=== PATIENT | male | born 1940 | race Caucasian/White ===

== ENCOUNTER 2017-04-30 14:29 | Emergency (ER) | payer MEDICARE ==
[2017-04-30 15:00] VITALS: BP 121/63
--- NOTE | 2017-04-30 15:02 | UC ---
Knee Pain HPI - HPI Summary HPI Summary: Pt presents to the [facility] with complaint of left knee pain. Pt states golfed on Wed without any difficulty. However, pt states had to squat and slid into the cart at an unusual angle second to a cover on the cart. Pt states since this time has pain and stiffness posterior aspect of distal femur. Pt states pain is worse with leg straightening and with standing. States feels "tight." Pt states has taken APAP with improvement. Pt states applied heat with improvement. No fevers, chills. no erythema. No edema. Pt states can't cross legs to put on shoes second to pain. Pt denies hip or back pain. Pt states was wearing a "stretchy knee cover" earlier today which helped, but he removed second to it was too hot. Pt states leg has improved, feels less stiff , but wanted to be checked. Pt is on Coumadin for a fib. Pt's medications reviewed at this visit. - History of Current Complaint Chief Complaint: UCLowerExtremity Stated Complaint: LEFT KNEE INJURY Time Seen by Provider: 04/30/17 14:34 Hx Obtained From: Patient Onset/Duration: Gradual Onset Severity Initially: Moderate Severity Currently: Mild Pain Intensity: 3 Pain Scale Used: 0-10 Numeric Character: Stiffness Aggravating Factor(s): Movement, Weight Bearing, Nothing - straightening Alleviating Factor(s): Rest, Heat, OTC Meds Associated Signs And Symptoms: Negative: Swelling, Redness, Weakness Able to Bear Weight: Yes - Allergies/Home Medications Allergies/Adverse Reactions: Allergies Allergy/AdvReac Type Severity Reaction Status Date / Time Aspirin AdvReac Bleeding Verified 04/30/17 14:45 Home Medications: Home Medications Allopurinol TAB* [Zyloprim 100 MG TAB*] 100 mg PO DAILY 04/30/17 [History Confirmed 04/30/17] PMH/Surg Hx/FS Hx/Imm Hx Previously Healthy: Yes - Surgical History Surgical History: Yes Surgery Procedure, Year, and Place: cholecystectomy. right nephrectomy in 2009. left inguinal hernia. b/L carpal tunnels. Bilat cataracts. 2011 pt states he had percutaneous procedure to remove something where he had the rt kidney removed in 2011. - Family History Known Family History: Positive: Unknown, Hypertension - Social History Occupation: Retired Alcohol Use: Weekly Alcohol Amount: 5-6 PER WEEK Substance Use Type: None Smoking Status (MU): Former Smoker Amount Used/How Often: 2 PACKS A DAY Length of Time of Smoking/Using Tobacco: smoked from age 18 to age 50 Have You Smoked in the Last Year: No When Did the Patient Quit Smoking/Using Tobacco: 1989 - Immunization History Most Recent Influenza Vaccination: Fall 2014 Most Recent Pneumonia Vaccination: Fall 2014 Review of Systems Constitutional: Negative Skin: Negative Eyes: Negative ENT: Negative Respiratory: Negative Cardiovascular: Negative Gastrointestinal: Negative Genitourinary: Negative Motor: Negative Neurovascular: Negative Musculoskeletal: Other: - posterior left LE Neurological: Negative Psychological: Negative All Other Systems Reviewed And Are Negative: Yes Physical Exam Triage Information Reviewed: Yes Appearance: Well-Appearing, No Pain Distress, Well-Nourished Vital Signs: Initial Vital Signs Temp 98.1 F 04/30/17 14:38 Pulse 75 04/30/17 14:38 Resp 20 04/30/17 14:38 BP 121/63 04/30/17 14:38 Pulse Ox 95 04/30/17 14:38 Eyes: Positive: Conjunctiva Clear ENT: Positive: Hearing grossly normal Neck: Positive: Supple, Nontender, No Lymphadenopathy Respiratory Exam: Normal Respiratory: Positive: Chest non-tender, Lungs clear, Normal breath sounds, No respiratory distress, No accessory muscle use Cardiovascular: Positive: Pulses Normal, Other: - + trace edema b/l LE 2+ DP, PT CBT <2 sec Musculoskeletal: Positive: Other: - No pain with palpation knee, calf, popliteal fossa + TTP distal hamstring Pain increased in hamstring with direct palpation and extension + tightness and tenderness hamstring no edema No pain with palpation fo knee, lateral joint testing, neg ant/posterior drawer + flex/ ext ankle Pain positional Neurological: Positive: Alert, Other: - 2+ patella - no clonus Psychological Exam: Normal Diagnostics - Radiology No standard instances Xray Interpretation: No Acute Changes Radiology Interpretation Completed By: Radiologist - Patient Name: SHAMEKA SALMERON Medical Record#: [id number] Ordering Physician: Emeli Randall MD Acct. #: [id number] : 1940 Age: 77 Sex: M Location: [facility] Exam Date: 04/30/17 1456 ADM Status: REG ER Order Information: KNEE LEFT 4+ VWS Accession Number: [id number] CPT: 33886 Indication: Left knee pain. 4 views left knee demonstrates no fracture or dislocation. No other bone or joint abnormality is noted. There may be a small joint effusion noted. IMPRESSION: Joint effusion. No fracture is noted. <Electronically signed by Ophelia Nicole MD in OV> 04/30/17 1522 Dictated By: Ophelia Nicole MD Dictated Date/Time: 04/30/17 1522 Transcribed Date/Time: 04/30/17 1519 Re-Evaluation - Re-Evaluation First Eval Comment: reviewed xray with pt. suspect hamstring strain. clovis for suppport. APAP. heat. stretch. comfort and agreement with plan. steady gait Knee Pain Course/Dx - Course Course Of Treatment: Pt presents with pain in posterior left leg along distal hamstring and tendon insertion. Suspect muscle strain. no suspicon for DVT - no calf pain and swelling, pt on coumadin. no suspicion for cordero cyst. no concernf or joint infection - no erythema, no warmth, no joint edema. Pt took ASA at noon. Will checck imaging. anticipate clovis, heat, stretch. Pt comfortable and in agreement with plan - Differential Dx/Diagnosis Provider Diagnoses: hamstring strain Discharge - Discharge Plan Condition: Stable Disposition: HOME Patient Education Materials: Hamstring Injury (ED) Referrals: Kimmy Grossman MD [Primary Care Provider] - Additional Instructions: - wear clovis wrap for comfort and support - Okay to take tylenol every 6-8 hours as needed for discomfort - Apply heat to your leg - then slow, gentle stretching exercises - contact your doctor to schedule a follow-up appointment. Call your doctor or return with questions or concerns
--- NOTE | 2017-04-30 15:26 | RAD ---
Indication: Left knee pain. 4 views left knee demonstrates no fracture or dislocation. No other bone or joint abnormality is noted. There may be a small joint effusion noted. IMPRESSION: Joint effusion. No fracture is noted.
== END 2017-04-30 15:44 | disposition home or self-care (01) ==
LOC: UCCORT 14:29
DX: S76.912A Strain of unspecified muscles, fascia and tendons at thigh level, left thigh, initial encounter (principal); X58.XXXA Exposure to other specified factors, initial encounter; Y93.9 Activity, unspecified; Y92.9 Unspecified place or not applicable; I48.91 Unspecified atrial fibrillation; Z79.01 Long term (current) use of anticoagulants; Z88.6 Allergy status to analgesic agent; Z90.49 Acquired absence of other specified parts of digestive tract; Z90.5 Acquired absence of kidney; Z98.42 Cataract extraction status, left eye; Z98.41 Cataract extraction status, right eye; Z87.891 Personal history of nicotine dependence
CPT/HCPCS: 99212; G0463